=== PATIENT | female | born 1940 | race Caucasian/White ===

== ENCOUNTER 2016-10-03 12:02 | Emergency (ER) | payer MEDICARE ==
[~2016-10-03 12:02] MED LIST: ALBU8.5H6 IH; ALPR0.25 PO; BUDE10.2 IH; CITA40TA12 PO; DOXY100C2 PO; FAMO-63 PO; Ipratropium/Albuterol Sulfate NEB; LEVO112T2 PO; LINE600T PO; LISI10TA2 PO; LORA10CA PO; LOVA20TA2 PO; MAGN400C PO; MONT10TA6 PO; PANT40TA3 PO; PRED-220 PO; RANI150T6 PO; SENN8.6T99 PO; Sulfamethoxazole/Trimethoprim PO; fluticasone; nebulizer
[2016-10-03] MEDS ORDERED: ALBUTEROL SULFATE 2.5 MG/3 ML NEBU. NEB ONE (12:45)
[2016-10-03] MEDS ORDERED: LIDO:MAALOX:DONNATAL 1:1:1 15 ML SINGLE DOSE SWSW ONE (12:45)
--- NOTE | 2016-10-03 12:53 | EKG ---
[facility] [address] [place] [address] Test Date: 2016-10-03 Test Time: 12:10:19 Pat Name: URVASHI LÓPEZ Department: Room: Gender: F [employer] Supervisor: : 1940 Requested By: GABBY PALACIOS Order Number: [id number] Reading MD: Measurements Intervals [place] Rate: 84 P: 37 PA: 122 QRS: -4 QRSD: 76 T: 38 QT: 362 QTc: 431 Interpretive Statements SINUS RHYTHM LEFT ATRIAL ABNORMALITY LEFTWARD AXIS RI6.01 Unconfirmed report No previous ECG available for comparison
[2016-10-03 12:57] LABS: BASO # 0.1 x10^3/uL (0.0-0.2); BASO % 1 % (0-3); EOS % 1 % (0-3); HEMATOCRIT 38.8 % (36.0-47.0); HEMOGLOBIN 13.1 g/dL (12.0-15.5); LYMPH # 2.9 x10^3/uL (1.0-4.8); LYMPH % 17 % (24-48); MEAN CORPUSCULAR HEMOGLOBIN 30 pg (25-35); MEAN CORPUSCULAR HGB CONC 34 g/dL (31-37); MEAN CORPUSCULAR VOLUME 87 fL (79-100); MONO % 7 % (0-9); NEUT % 74 % (31-73); PLATELET COUNT 286 x10^3/uL (140-400); RED BLOOD COUNT 4.43 x10^6/uL (3.50-5.40); RED CELL DISTRIBUTION WIDTH 14.3 % (11.5-14.5); WHITE BLOOD COUNT 16.9 x10^3/uL (4.0-11.0)
[2016-10-03 13:05] LABS: CALCIUM 9.5 mg/dL (8.5-10.1); CREATININE 0.8 mg/dL (0.6-1.0); GFR 69.6; POTASSIUM 4.1 mmol/L (3.5-5.1)
[2016-10-03 13:11] LABS: ALBUMIN 3.3 g/dL (3.4-5.0); DIRECT BILIRUBIN 0.1 mg/dL (0.0-0.2); TOTAL BILIRUBIN 0.6 mg/dL (0.2-1.0); TOTAL PROTEIN 7.7 g/dL (6.4-8.2)
[2016-10-03 13:27] LABS: OBC FLU VALID
--- NOTE | 2016-10-03 13:42 | ED.ADGEN ---
Past Medical History Past Medical History: Asthma, Depression, High Cholesterol, Hypertension, Hypothyroid, Other Additional Past Medical Histor: rheumatic fever, sinusitis, polymyalgia rheumatica, ocular migraines Past Surgical History: Other Additional Past Surgical Histo: sinus, spinal decompression and fusion, cyst removal on larynx and L groin Alcohol Use: None Drug Use: None Adult General Chief Complaint Chief Complaint: CHEST WALL PAIN HPI HPI Patient is a 76 year old female presents emergency department with intermittent epigastric pain for the last 4-5 days. Patient has a history of esophageal stricture with dilation she states it feels like the stricture may be returning. She is also suspicious that this is heartburn. She reports that her symptoms are worse after eating. She has had a few episodes where the pain is radiated to her right chest wall or left shoulder. She denies any fevers ( although temp is elevated here today), chills, nausea, vomiting, or diaphoresis. Denies any dyspnea. Review of Systems Review of Systems Constitutional: Denies fever or chills. [] Eyes: Denies change in visual acuity. [] HENT: Denies nasal congestion or sore throat. [] Respiratory: Denies cough or shortness of breath. [] Cardiovascular: Denies chest pain or edema. [] GI: Denies abdominal pain, nausea, vomiting, bloody stools or diarrhea. [] : Denies dysuria. [] Musculoskeletal: Denies back pain or joint pain. [] Integument: Denies rash. [] Neurologic: Denies headache, focal weakness or sensory changes. [] Endocrine: Denies polyuria or polydipsia. [] Lymphatic: Denies swollen glands. [] Psychiatric: Denies depression or anxiety. [] Current Medications Current Medications Current Medications Medications (Trade) Dose Ordered Sig/Priya Start Time Stop Time Status Last Admin Dose Admin Albuterol Sulfate (Ventolin Neb Soln) 2.5 mg 1X ONCE 10/03/16 12:45 10/03/16 12:49 DC Multi-Ingredient Mouthwash/Gargle (Gi Cocktail Single Dose) 15 ml 1X ONCE 10/03/16 12:45 10/03/16 12:49 DC 10/03/16 12:53 15 ML Allergies Allergies Allergies Coded Allergies Type Severity Reaction Last Updated Verified roflumilast Allergy Severe Swelling 10/03/16 No I S O L A T I O N *CONTACT* Allergy Unknown 04/02/15 Yes levofloxacin Adverse Reaction Intermediate diarrhea 04/03/15 Yes Physical Exam Physical Exam Constitutional: Well developed, well nourished, no acute distress, non-toxic appearance. [] HENT: Normocephalic, atraumatic, bilateral external ears normal, oropharynx moist, no oral exudates, nose normal. [] Eyes: PERRLA, EOMI, conjunctiva normal, no discharge. [] Neck: Normal range of motion, no tenderness, supple, no stridor. [] Cardiovascular:Heart rate regular rhythm, no murmur [] Lungs & Thorax: Bilateral breath sounds decreased with occasional minor wheeze [] Abdomen: Bowel sounds normal, soft, no tenderness, no masses, no pulsatile masses. [] Skin: Warm, dry, no erythema, no rash. [] Back: No tenderness, no CVA tenderness. [] Extremities: No tenderness, no cyanosis, no clubbing, ROM intact, no edema. [] Neurologic: Alert and oriented X 3, normal motor function, normal sensory function, no focal deficits noted. [] Psychologic: Affect normal, judgement normal, mood normal. [] Current Patient Data Vital Signs Vital Signs Date Time Temp Pulse Resp B/P Pulse Ox O2 Delivery O2 Flow Rate FiO2 10/03/16 14:43 76 133/62 93 Room Air 10/03/16 12:08 99.7 20 99.7 Lab Values Laboratory Tests Test 10/03/16 12:15 10/03/16 12:17 10/03/16 13:37 White Blood Count 16.9x10^3/uL (4.0-11.0) H Red Blood Count 4.43x10^6/uL (3.50-5.40) Hemoglobin 13.1g/dL (12.0-15.5) Hematocrit 38.8% (36.0-47.0) Mean Corpuscular Volume 87fL (79-100) Mean Corpuscular Hemoglobin 30pg (25-35) Mean Corpuscular Hemoglobin Concent 34g/dL (31-37) Red Cell Distribution Width 14.3% (11.5-14.5) Platelet Count 286x10^3/uL (140-400) Neutrophils (%) (Auto) 74% (31-73) H Lymphocytes (%) (Auto) 17% (24-48) L Monocytes (%) (Auto) 7% (0-9) Eosinophils (%) (Auto) 1% (0-3) Basophils (%) (Auto) 1% (0-3) Neutrophils # (Auto) 12.5x10^3uL (1.8-7.7) H Lymphocytes # (Auto) 2.9x10^3/uL (1.0-4.8) Monocytes # (Auto) 1.2x10^3/uL (0.0-1.1) H Eosinophils # (Auto) 0.2x10^3/uL (0.0-0.7) Basophils # (Auto) 0.1x10^3/uL (0.0-0.2) Sodium Level 140mmol/L (136-145) Potassium Level 4.1mmol/L (3.5-5.1) Chloride Level 102mmol/L (98-107) Carbon Dioxide Level 26mmol/L (21-32) Anion Gap 12 (6-14) Blood Urea Nitrogen 12mg/dL (7-20) Creatinine 0.8mg/dL (0.6-1.0) Estimated GFR (Cockcroft-Gault) 69.6 Glucose Level 94mg/dL (70-99) Calcium Level 9.5mg/dL (8.5-10.1) Total Bilirubin 0.6mg/dL (0.2-1.0) Direct Bilirubin 0.1mg/dL (0.0-0.2) Aspartate Amino Transferase (AST) 15U/L (15-37) Alanine Aminotransferase (ALT) 18U/L (14-59) Alkaline Phosphatase 90U/L (46-116) Troponin I Quantitative < 0.017ng/mL (0.000-0.055) TQ-Jwy-R-Type Natriuretic Peptide 235pg/mL (0-449) Total Protein 7.7g/dL (6.4-8.2) Albumin 3.3g/dL (3.4-5.0) L Lipase 87U/L (73-393) Influenza Type A Antigen Negative (NEGATIVE) Influenza Type B Antigen Negative (NEGATIVE) Urine Collection Type Unknown Urine Color Yellow Urine Clarity Clear Urine pH 5.5 Urine Specific [place] 1.015 Urine Protein Negativemg/dL (NEG-TRACE) Urine Glucose (UA) Negativemg/dL (NEG) Urine Ketones (Stick) Negativemg/dL (NEG) Urine Blood Moderate (NEG) Urine Nitrite Negative (NEG) Urine Bilirubin Negative (NEG) Urine Urobilinogen Dipstick 0.2mg/dL (0.2 mg/dL) Urine Leukocyte Esterase Small (NEG) Urine RBC 1-2/HPF (0-2) Urine WBC 1-4/HPF (0-4) Urine Squamous Epithelial Cells Few/LPF Urine Bacteria Few/HPF (0-FEW) Urine Hyaline Casts Few/HPF Urine Mucus Mod/LPF Laboratory Tests 10/03/16 12:15 Laboratory Tests 10/03/16 12:15 EKG EKG EKG interpreted by me, normal sinus rhythm, 84 bpm, no ST segment elevation, leftward axis [] Radiology/Procedures Radiology/Procedures EXAM: Two view abdomen with one view chest HISTORY: Left abdominal pain. COMPARISON: 03/31/2015. FINDINGS: A frontal view of the chest and supine/upright views of the abdomen are obtained. There are no confluent infiltrates. Hyperinflation suggests chronic obstructive pulmonary disease. There is no pneumothorax or pleural effusion. The heart is mildly enlarged. There are atherosclerotic calcifications of the aorta. There is no pneumoperitoneum. There are no distended small bowel loops or significant air-fluid levels. There is moderate gaseous distention of the cecum. There is gas distally. Stool throughout the colon is consistent with constipation. There are changes of instrumented posterior fusion at L4-5. IMPRESSION: 1. No confluent infiltrates. Hyperinflation suggests chronic obstructive pulmonary disease. 2. Mild cardiomegaly. 3. Gaseous distention of the cecum. Correlate for constipation. No evidence of obstruction. DICTATED and SIGNED BY: JAMIN ALDRICH MD DATE: 10/03/16 2649 CC: GABBY PALACIOS MD; ELLIE DAMON MD ~[] Course & Med Decision Making Course & Med Decision Making Pertinent Labs and Imaging studies reviewed. (See chart for details) Overall, her workup is reassuring. She does have an equivocal minor urinary tract infection which we will treat with Bactrim. She also appears to have constipation on her x-ray she tells me that this is a chronic problem for her. Ultimately, I do believe this is more likely related to her esophageal stricture than anything else. Shortly has an appointment scheduled in 2 days with the primary care physician. I have asked her to keep that appointment and to return emergency department sooner she develops any new or worsening symptoms. Epigastric pain Urinary tract infection Constipation [] Dragon Disclaimer Dragon Disclaimer This electronic medical record was generated, in whole or in part, using a voice recognition dictation system. GABBY PALACIOS MD Oct 03, 2016 13:42
[2016-10-03 14:11] LABS: BILIRUBIN,URINE NEGATIVE (NEG); GLUCOSE,URINE NEGATIVE (NEG); NITRITE,URINE NEGATIVE (NEG); PH,URINE 5.5; PROTEIN,URINE NEGATIVE (NEG-TRACE); UROBILINOGEN,URINE 0.2 mg/dL (0.2 mg/dL)
--- NOTE | 2016-10-03 14:19 | RAD ---
EXAM: Two view abdomen with one view chest HISTORY: Left abdominal pain. COMPARISON: 03/31/2015. FINDINGS: A frontal view of the chest and supine/upright views of the abdomen are obtained. There are no confluent infiltrates. Hyperinflation suggests chronic obstructive pulmonary disease. There is no pneumothorax or pleural effusion. The heart is mildly enlarged. There are atherosclerotic calcifications of the aorta. There is no pneumoperitoneum. There are no distended small bowel loops or significant air-fluid levels. There is moderate gaseous distention of the cecum. There is gas distally. Stool throughout the colon is consistent with constipation. There are changes of instrumented posterior fusion at L4-5. IMPRESSION: 1. No confluent infiltrates. Hyperinflation suggests chronic obstructive pulmonary disease. 2. Mild cardiomegaly. 3. Gaseous distention of the cecum. Correlate for constipation. No evidence of obstruction.
[2016-10-03 14:42] LABS: BACTERIA,URINE FEW /HPF (0-FEW); SQUAMOUS EPITHELIAL CELL,UR FEW /LPF
[2016-10-03 14:43] VITALS: BP 133/62
[2016-10-03] MEDS ORDERED: SULF1TAB24 PO (14:53)
== END 2016-10-03 15:09 | disposition home or self-care (01) ==
LOC: ER 12:02
DX: N39.0 Urinary tract infection, site not specified (principal); R07.89 Other chest pain; K59.00 Constipation, unspecified; E03.9 Hypothyroidism, unspecified; E78.00 Pure hypercholesterolemia, unspecified; I10 Essential (primary) hypertension; J45.909 Unspecified asthma, uncomplicated; M35.3 Polymyalgia rheumatica; G43.809 Other migraine, not intractable, without status migrainosus; Z88.1 Allergy status to other antibiotic agents; Z88.8 Allergy status to other drugs, medicaments and biological substances; Z91.041 Radiographic dye allergy status
CPT/HCPCS: 36415; 74022; 80048; 80076; 81001; 83690; 83880; 84484; 85027; 87086; 87804; 93005; 94250; 94640; 99285-25

== ENCOUNTER → 2016-11-04 | Outpatient (CLI) | payer BC, MEDICARE ==
[~2016-11-04] MED LIST changes: +IOHEXOL 240 MG/ML 50ML VIAL. PO ONE; +IOHEXOL 300 MG/ML 100ML VIAL. IV ONE; +SULF1TAB24 PO
--- NOTE | 2016-11-04 11:49 | KCIC ---
PQRS STATEMENT One or more of the following individualized dose reduction techniques were utilized for this study: 1.Automated exposure control. 2.Adjustment of the mA and/orkVaccording to patient size. 3.Use of iterative reconstruction technique. Indication:Reason For Study Reason: LUQ PAIN / Spl. Instructions: 89cc Omni 300 / History: Pain for 2 weeks, wt loss of 10lbs last 6 months, decreased appetite Comparison: none available Technique: multiple contiguous axial images were obtained through the abdomen and pelvis before and after intravenous administration of iodinated contrast. Coronal and sagittal reformations were created. Findings: The lung bases are clear. The heart size is normal. The liver is normal in size with several hepatic cysts noted.. The gallbladder is nondistended. The pancreas is unremarkable. The spleen and adrenal glands are within normal limits. Kidneys are unremarkable apart from a cortical cyst on the left. The abdominal aorta is normal in caliber. There is perigastric adenopathy of indeterminate etiology. The appendix is normal. The bowel loops are normal in caliber. The urinary bladder is within normal limits. No destructive osseous lesion is identified. Impression: - There is perigastric adenopathy of indeterminate etiology. There is also mild retroperitoneal adenopathy. Although not specific, consider lymphoma as in etiology given the patient's reported weight loss. Electronically signed by: Rafal Yee (Nov 04, 2016 11:47:32)
== END | disposition home or self-care (01) ==
LOC: KCIC CT 09:45
PROVIDERS: ATTEND Family Medicine
DX: R10.12 Left upper quadrant pain (principal); J45.909 Unspecified asthma, uncomplicated; I10 Essential (primary) hypertension; R63.4 Abnormal weight loss
CPT/HCPCS: 74178; Q9966; Q9967

== ENCOUNTER → 2016-12-02 | Day surgery (SDC) | payer BC ==
[~2016-12-02] MED LIST changes: +HYDROmorphone 2 MG/ML VIAL IV PRN; -IOHEXOL 240 MG/ML 50ML VIAL. PO ONE; -IOHEXOL 300 MG/ML 100ML VIAL. IV ONE; +IV RINGERS,LACTATED 1000ML 1,000 ML IV SCH; +LIDOCAINE 1% 1 ML SYRINGE. ID PRN; +MORPHINE SULFATE 2 MG/ML DISP.SYRIN. IV PRN; +PROCHLORPERAZINE 10 MG/2 ML VIAL. IV PRN; +PROPOFOL 20 ML IV ONE; +PROPOFOL 40 ML IV ONE
[2016-12-02 14:49] VITALS: BP 147/58
--- NOTE | 2016-12-07 11:56 | PATHOLOGY ---
PATHOLOGY REPORT * * * * * * * * FINAL DIAGNOSIS: A. Colon, sigmoid, biopsy: - Adenomatous polyp, one. - Hyperplastic polyp, one. B. Colon, descending, biopsy: - Adenomatous polyps, four. - Hyperplastic polyp, one. REPORT ELECTRONICALLY SIGNED BY: René Haley M.D. DATE/TIME: 12/07/2016 11:56 * * * * * * * * GROSS PATHOLOGY: A. Received in formalin labeled "Donna López, sigmoid polyps 2," are 2 segments of gutierrez soft tissue measuring 0.8 x 0.5 x 0.3 cm in aggregate dimensions and ranging from 0.4 to 0.5 cm in maximum dimension. The specimen is submitted entirely in cassette A1. B. Received in formalin labeled "Donna López, descending colon polyps 2," are 5 segments of gutierrez soft tissue measuring 0.9 x 0.8 x 0.6 cm in aggregate dimensions and ranging from 0.2 to 0.9 cm in maximum dimension. The specimen is submitted entirely in cassette B1. (KAH; 12/04/2016) INITIAL CPT CODE(S): A; 57793 B; 49060 Professional services performed by [facility], [address] [place] [address]. Technical services performed by [facility], [address] [place] [address], [address], [place] [address]. SPECIMEN(S) RECEIVED: A.Sigmoid polyps x2 B.Descending colon polyp x2 CLINICAL HISTORY: Dysphagia, weight loss, LLQ pain PATIENT: DONNA LÓPEZ /AGE: 10 1940 (Age: 76) PATIENT #: [id number] ALT CASE #: SPECIMEN COLLECTION DATE: 12/02/2016 SPECIMEN RECEIVED DATE: 12/03/2016 [facility] - [address] [place] [address] - PHONE: [phone] * * * END OF REPORT * * *
== END | disposition home or self-care (01) ==
LOC: ENDOS 12:24
PROVIDERS: ATTEND Internal Medicine Gastroenterology
DX: D12.5 Benign neoplasm of sigmoid colon (principal); D12.4 Benign neoplasm of descending colon; K64.1 Second degree hemorrhoids; K22.2 Esophageal obstruction; K29.50 Unspecified chronic gastritis without bleeding; K21.9 Gastro-esophageal reflux disease without esophagitis; F41.9 Anxiety disorder, unspecified; E78.00 Pure hypercholesterolemia, unspecified; I10 Essential (primary) hypertension; E03.9 Hypothyroidism, unspecified; F32.9 Major depressive disorder, single episode, unspecified; Z88.1 Allergy status to other antibiotic agents; Z88.8 Allergy status to other drugs, medicaments and biological substances; Z86.69 Personal history of other diseases of the nervous system and sense organs
CPT/HCPCS: 43235; 43450; 45385; 88305; J2704

== ENCOUNTER → 2016-12-15 | Outpatient (CLI) | payer BC ==
[2016-12-15] VITALS (16 sets, daily range): BP systolic 109–147; BP diastolic 52–83
[~2016-12-15] VITALS: Ht 156.2 cm; Wt 68.9 kg
[~2016-12-15] MED LIST changes: +CONTRAST GIVEN MC PRN; +FLUMAZENIL 0.5 MG/5 ML VIAL. IV ONE; -HYDROmorphone 2 MG/ML VIAL IV PRN; +IOHEXOL 300 MG/ML 100ML VIAL. IART ONE; +IOHEXOL 300 MG/ML 100ML VIAL. ONE; -IV RINGERS,LACTATED 1000ML 1,000 ML IV SCH; +KETOROLAC TROMETHAMINE 30 MG/ML INJ. IV ONE; +LIDOCAINE 1% / SOD BICARB 8.4% 20 ML VIAL. IJ ONE; -LIDOCAINE 1% 1 ML SYRINGE. ID PRN; +MIDAZOLAM HCL/PF 2 MG/2 ML VIAL. IV ONE; +MIDAZOLAM HCL/PF 2 MG/2 ML VIAL. ONE; -MORPHINE SULFATE 2 MG/ML DISP.SYRIN. IV PRN; +NALOXONE 0.4 MG/ML VIAL. ONE; -PROCHLORPERAZINE 10 MG/2 ML VIAL. IV PRN; -PROPOFOL 20 ML IV ONE; -PROPOFOL 40 ML IV ONE; +fentaNYL PF VIAL 100 MCG/2 ML VIAL IV ONE; +fentaNYL PF VIAL 100 MCG/2 ML VIAL ONE
[2016-12-15 07:59] LABS: BASO # 0.1 x10^3/uL (0.0-0.2); BASO % 1 % (0-3); EOS % 9 % (0-3); HEMATOCRIT 36.4 % (36.0-47.0); HEMOGLOBIN 12.2 g/dL (12.0-15.5); LYMPH # 1.7 x10^3/uL (1.0-4.8); LYMPH % 19 % (24-48); MEAN CORPUSCULAR HEMOGLOBIN 30 pg (25-35); MEAN CORPUSCULAR HGB CONC 34 g/dL (31-37); MEAN CORPUSCULAR VOLUME 90 fL (79-100); MONO % 8 % (0-9); NEUT % 63 % (31-73); PLATELET COUNT 314 x10^3/uL (140-400); RED BLOOD COUNT 4.02 x10^6/uL (3.50-5.40); RED CELL DISTRIBUTION WIDTH 14.5 % (11.5-14.5); WHITE BLOOD COUNT 9.3 x10^3/uL (4.0-11.0)
[2016-12-15 08:07] LABS: INR 1.1 (0.8-1.1); PROTHROMBIN TIME PATIENT 13.4 SEC (11.7-14.0)
--- NOTE | 2016-12-15 09:51 | PDOC ---
MODERATE SEDATION ASSESSMENT RISKS/ALTERNATIVES Risks/Alternatives Risks and alternatives of this type of sedation and procedure discussed with: RISK/ALTERNATIVES: Patient H & P ON CHART H & P H & P on chart and reviewed for co-morbid conditions and appropriate labs. H&P ON CHART: Yes STATUS PREG STATUS ASSESSED: N/A MEDS/ALLERGIES REVIEWED Meds/Allergies Reviewed Medications and Allergies including time and route of recently administered narcotics and sedatives. MEDS/ALLERGIES REVIEWED: Yes ASA RATING ASA RATING: II AIRWAY ASSESSMENT Airway Assessment Airway patency, oral function limitations, presence of caps, crowns, dentures, partials, and ability to extend neck assessed. AIRWAY ASSESSMENT: Yes MALLAMPATI SCORE MALLAMPATI SCORE: II PRE-SEDATION ASSESSMENT PRE-SEDATION ASSESSMENT: Yes MIRA ADAME MD December 15, 2016 09:51
--- NOTE | 2016-12-15 10:01 | PDOC1 ---
History and Physical Date of Procedure Date of Admission 12/15/[address] guided lymph node bx Indication Indication 76 YO female with wt loss, abdominal pain, and scattered mild perigastric, celiac, peripancreatic, and central RP adenopathy. Past Medical History Past Medical History See Nursing Pre procedure PMH Past Surgical History Past Surgical History See Nursing Pre procedure PSH Current Medications Current Medications Current Medications Lidocaine/Sodium Bicarbonate (Buffered Lidocaine 1%) 20 ml STK-MED ONCE IJ ; Start 12/15/16 at 07:57; Stop 12/15/16 at 07:58; Status DC Iohexol (Omnipaque 300 Mg/ml) 100 ml STK-MED ONCE .ROUTE ; Start 12/15/16 at 08: 28; Stop 12/15/16 at 08:29; Status DC Naloxone HCl (Narcan) 0.4 mg STK-MED ONCE .ROUTE ; Start 12/15/16 at 08:42; Stop 12/15/16 at 08:43; Status DC Flumazenil (Romazicon) 0.5 mg STK-MED ONCE IV ; Start 12/15/16 at 08:42; Stop at 08:43; Status DC Fentanyl Citrate (Fentanyl 2ml Vial) 100 mcg STK-MED ONCE .ROUTE ; Start at 08:43; Stop 12/15/16 at 08:44; Status DC Midazolam HCl (Versed) 2 mg STK-MED ONCE .ROUTE ; Start 12/15/16 at 08:43; Stop 12/15/16 at 08:44; Status DC Lidocaine/Sodium Bicarbonate (Buffered Lidocaine 1%) 20 ml 1X ONCE IJ Last administered on 12/15/16 09:37; Start 12/15/16 at 09:00; Stop 12/15/16 at 09:01 ; Status DC Midazolam HCl (Versed) 2 mg 1X ONCE IV Last administered on 12/15/16 09:38; Start 12/15/16 at 09:00; Stop 12/15/16 at 09:01; Status DC Fentanyl Citrate (Fentanyl 2ml Vial) 100 mcg 1X ONCE IV Last administered on 09:38; Start 12/15/16 at 09:00; Stop 12/15/16 at 09:01; Status DC Iohexol (Omnipaque 300 Mg/ml) 100 ml 1X ONCE IART Last administered on t 09:37; Start 12/15/16 at 09:00; Stop 12/15/16 at 09:01; Status DC Info (Do NOT chart on this entry -- for MONITORING) 1 each PRN DAILY PRN MC SEE COMMENTS; Start 12/15/16 at 09:00; Stop 12/17/16 at 08:59 Ketorolac Tromethamine (Toradol) 30 mg 1X ONCE IV ; Start 12/15/16 at 09:45; Stop 12/15/16 at 09:46; Status DC Active Scripts Active Zyvox (Linezolid) 600 Mg Tablet 600 Mg PO BID 14 Days [Ipratropium/Albuterol Sulfate] 3 ML Nebu 3 Ml NEB 1X Reported Magnesium (Magnesium Oxide) 400 Mg Capsule 1 Cap PO DAILY Zantac (Ranitidine Hcl) 150 Mg Tablet 150 Mg PO DAILY Xanax (Alprazolam) 0.25 Mg Tablet 0.25 Mg PO QIDPRN PRN Celexa (Citalopram Hydrobromide) 40 Mg Tablet 40 Mg PO Synthroid (Levothyroxine Sodium) 112 Mcg Tablet 112 Mcg PO DAILY Singulair Tablet (Montelukast Sodium) 10 Mg Tablet 10 Mg PO DAILY Claritin (Loratadine) 10 Mg Capsule 10 Mg PO DAILY Lovastatin 20 Mg Tablet 20 Mg PO DAILY Lisinopril 10 Mg Tablet 10 Mg PO DAILY [nebulizer] PRN DAILY Albuterol Sulfate Hfa Inhaler (Albuterol Sulfate) 8.5 Gm Hfa.aer.ad 8.5 Gm IH PRN DAILY [fluticasone] BID Symbicort 160-4.5 Mcg Inhaler (Budesonide/Formoterol Fumarate) 10.2 Gm Hfa.aer.ad 10.2 Gm IH BID Allergies Allergies: Coded Allergies: roflumilast (Unverified Allergy, Severe, Swelling, 12/02/16) I S O L A T I O N *CONTACT* (Verified Allergy, Unknown, 12/02/16) mrsa + levofloxacin (Verified Adverse Reaction, Intermediate, diarrhea, 12/02/16) Physical Exam Vital Signs Vital Signs Date Time Temp Pulse Resp B/P (MAP) Pulse Ox O2 Delivery O2 Flow Rate FiO2 12/15/16 09:39 81 20 99 Nasal Cannula 2.0 12/15/16 08:34 97.8 134/59 (84) 97.8 Lungs: Clear to auscultation Heart: Regular rate Psych/Mental Status: Mental status NL Diagnostic Data/Imaging Images [facility] CT chest from 04/01/[address] [facility] CT abd/pelvis from 11/04/16 reviewed. Assessment Assessment 76 YO female with wt loss, abdominal pain, and mild upper abdominal and central RP adenopathy. Upper abdominal perigastric/celiac and peripancreatic nodes were not present on upper abdominal images from CT chest in [place]. CT guided node bx has been requested for tissue diagnosis---lymphoma vs met disease (of ? primary) vs reactive. Problems: Plan Plan CT guided node bx, if safe percutaneous route can be identified. MIRA ADAME MD December 15, 2016 10:01
--- NOTE | 2016-12-15 10:07 | PDOC ---
Exam Market Research Specialist Market Research Specialist José Miguel Model [employer] Person Model And D[employer] Person Delmar Valderrama Pre-Procedure Diagnosis Pre-Procedure Diagnosis 76 YO female with abdominal pain, wt loss, and mild perigastric/gastrohepatic/ celiac, peripancreatic, and central RP adenopathy---upper abdominal nodes are new since CT chest from Mar. Lymphoma vs met disease of unknown primary vs reactive adenopathy. Post-Procedure Diagnosis Post-Procedure Diagnosis Same Procedure Performed Procedure Performed CT guided bx of gastrohepatic/celiac 2.5 cm node mass. Type of Anesthesia Type of Anesthesia Local + Mod sedation Estimated Blood Loss EBL: Trace Specimens Specimans 3 18G core bx in formalin to path 1 18G core bx in cell flow holding media to path Condition of Patient Condition of Patient Stable. No apparent complication. Disposition Disposition Home from [facility] post recovery, if no problems. F/u with Dr Delgado. Full report to follow. MIRA ADAME MD December 15, 2016 10:07
--- NOTE | 2016-12-16 07:00 | RAD ---
CT-guided lymph node biopsy Indication: 76-year-old female with abdominal pain, weight loss, and with interval appearance of upper abdominal lymphadenopathy since a prior CT chest done 04/01/2015. Differential considerations would include lymphoma versus metastatic disease of unknown primary versus reactive adenopathy. Image guided lymph node biopsy has been requested for tissue diagnosis. Anesthesia: 22 minutes moderate sedation was provided utilizing a total of 2 mg Versed and 100 mcg fentanyl, IV. The patient was appropriately monitored by a qualified independent observer throughout the time of moderate sedation. Consent: The procedure was explained in its entirety to the patient and/or the patient's designated field representatives director by a member of the treatment team. This included a discussion of risks and benefits and acceptable alternatives to the procedure, as well as expected consequences of no treatment at all. Discussion of risks included, but was not limited to, those that are most frequent and those that are rare, but possibly severe or life-threatening, as well as the possibility of unforeseen complications. Contrast material: 75 cc Omnipaque 300 Procedure: Informed consent was obtained from the patient. She was placed supine on the CT scanner. Preliminary non-IV contrast followed by dynamic contrast CT images were obtained through abdomen. Those images confirmed the presence of a 2.5 cm gastrohepatic/celiac lymph node suitable for CT-guided biopsy. An overlying left anterior skin site was selected, was marked, and was prepped and draped in the usual sterile fashion. Using aseptic technique, local anesthesia, and CT guidance, a 17-gauge guide needle was successfully advanced to anterior margin of the lymph node mass, taking care to avoid greater curve of stomach and adjacent celiac artery branches. A total of 4 18-gauge core biopsy samples were obtained. 3 samples were submitted in formalin to pathology. One sample was submitted to pathology in cell flow holding media. The biopsy guide needle was removed and a sterile dressing was applied. Patient tolerated the procedure well without apparent complication. Completion CT images revealed no evidence of postbiopsy bleeding. Impression: Successful, uneventful CT-guided biopsy of enlarged gastrohepatic/celiac lymph node, as described. PQRS Compliance Statement: One or more of the following individualized dose reduction techniques was utilized for this procedure: 1. Automated exposure control. 2. Adjustment of MA and/or KV according to patient size. 3. Iterative reconstruction technique.
== END | disposition home or self-care (01) ==
LOC: INTRAD 07:18
PROVIDERS: ATTEND Internal Medicine Gastroenterology
DX: R59.9 Enlarged lymph nodes, unspecified (principal); Z88.8 Allergy status to other drugs, medicaments and biological substances; Z88.1 Allergy status to other antibiotic agents; E78.00 Pure hypercholesterolemia, unspecified; I10 Essential (primary) hypertension; J45.909 Unspecified asthma, uncomplicated; E03.9 Hypothyroidism, unspecified; K21.9 Gastro-esophageal reflux disease without esophagitis; F41.9 Anxiety disorder, unspecified; F32.9 Major depressive disorder, single episode, unspecified; Z87.39 Personal history of other diseases of the musculoskeletal system and connective tissue; Z86.14 Personal history of Methicillin resistant Staphylococcus aureus infection; Z86.69 Personal history of other diseases of the nervous system and sense organs
CPT/HCPCS: 36415; 49180; 77012; 85027; 85610; 88184; 88185; J2250; J3010; Q9967

== ENCOUNTER → 2017-01-06 | Outpatient (CLI) | payer BC ==
[2016-12-15 11:50] VITALS: BP 124/61
[~2017-01-06] MED LIST changes: -FLUMAZENIL 0.5 MG/5 ML VIAL. IV ONE; -IOHEXOL 300 MG/ML 100ML VIAL. IART ONE; +IOHEXOL 300 MG/ML 100ML VIAL. IV ONE; -IOHEXOL 300 MG/ML 100ML VIAL. ONE; -KETOROLAC TROMETHAMINE 30 MG/ML INJ. IV ONE; -LIDOCAINE 1% / SOD BICARB 8.4% 20 ML VIAL. IJ ONE; -MIDAZOLAM HCL/PF 2 MG/2 ML VIAL. IV ONE; -MIDAZOLAM HCL/PF 2 MG/2 ML VIAL. ONE; -NALOXONE 0.4 MG/ML VIAL. ONE; -fentaNYL PF VIAL 100 MCG/2 ML VIAL IV ONE; -fentaNYL PF VIAL 100 MCG/2 ML VIAL ONE
--- NOTE | 2017-01-06 14:23 | KCIC ---
Indication: New diagnosis of adenocarcinoma. Technique: Axial images and coronal and sagittal reformatted images are provided. 85 mL of intravenous Omnipaque 300 was administered without complication. Comparison is a CT abdomen and pelvis from November 04, 2016. One or more of the following individualized dose reduction techniques were utilized for this examination: 1. Automated exposure control 2. Adjustment of the mA and/or kV according to patient size 3. Use of iterative reconstruction technique Findings: There is mild emphysema. This has a right upper lobe predominance. There are 2 left lower lobe pulmonary nodules abutting the pleura up to 3 mm in size. There is minimal lingular atelectasis or scarring. There is no pleural effusion. Central airways are patent. There is a prominent right paratracheal lymph node measuring 15 x 12 mm. There is an enlarged right hilar lymph node measuring 16 x 13 mm. There is atheromatous disease in the thoracic aorta. The heart is not enlarged. Probable cysts in the liver are redemonstrated. Adenopathy in the region of the gastrohepatic ligament as not appreciably changed in size. There are mild degenerative changes in the spine. IMPRESSION: 1. Mildly prominent right paratracheal and right hilar lymph nodes. If further workup is required in this patient with adenocarcinoma, consider PET/CT or bronchoscopy. At the minimum, follow-up CT would be recommended. 2. Pulmonary nodules for which 12 month follow-up would be recommended in this high-risk patient. 3. Mild emphysema. Electronically signed by: Miko Bowers MD (01/06/2017 2:20 PM)
== END | disposition home or self-care (01) ==
LOC: KCIC CT 12:26
PROVIDERS: ATTEND Internal Medicine Gastroenterology
DX: J43.9 Emphysema, unspecified (principal); R59.0 Localized enlarged lymph nodes
CPT/HCPCS: 71260; Q9967

== ENCOUNTER → 2017-01-13 | Outpatient (CLI) | payer BC ==
[2016-12-15 11:50] VITALS: BP 124/61
[~2017-01-13] MED LIST changes: -CONTRAST GIVEN MC PRN; -IOHEXOL 300 MG/ML 100ML VIAL. IV ONE
--- NOTE | 2017-01-13 15:57 | RAD ---
FDG tumor localization scan, PET/CT, 01/13/2017: History: Adenocarcinoma, pulmonary nodule Following IV injection of 15.3 mCi of 18 F-FDG, imaging was performed from the skull base to the proximal thighs. The noncontrast CT component was performed for attenuation correction and anatomic localization purposes rather than for primary diagnosis. The patient's blood glucose level at the time of injection was 109 mg/DL. There is partial opacification of the paranasal sinuses. There are defects in the medial gonzalez of both maxillary sinuses, presumably postsurgical. There is increased activity in these regions compatible with inflammation. There is also increased FDG uptake in the tonsillar regions bilaterally compatible with inflammation. Physiologic activity is seen in the laryngeal region. There is symmetrical increased activity in both lobes of the thyroid gland, of doubtful significance. No abnormal pulmonary or mediastinal FDG uptake is seen. The 2 tiny subpleural nodules seen in the left base on the 01/06/2017 CT study are too small to expect to accurately evaluate with PET imaging. There is adenopathy in the upper abdomen best seen in the celiac, left para-aortic, perigastric and splenic hilar regions. These nodes are hypermetabolic. They have increased in size since 11/04/2016. For example, a 3 cm node located just superior to the proximal celiac artery demonstrates a maximum SUV of 10.5. This node measured approximately 2.4 cm in size on the previous study. There is an adjacent focus of increased FDG uptake which appears to involve the posterior aspect of the proximal stomach. The maximum SUV of this lesion is 9.0. It is slightly larger than the hypermetabolic celiac node. Normal GI tract and urinary tract activity is present in other portions of the abdomen and pelvis. No abnormal hepatic FDG uptake is seen. Several well-defined low density hepatic lesions are probably cysts. IMPRESSION: 1. Increasing hypermetabolic adenopathy in the upper abdomen compatible with the given history of metastatic adenocarcinoma. 2. Hypermetabolic focus in the posterior aspect of the proximal stomach raising the possibility of a primary gastric neoplasm versus adjacent adenopathy. 3. No definite evidence of metastatic disease in the chest.. The tiny left basilar subpleural nodules are too small to characterize. 4. Chronic paranasal sinusitis and tonsillar region inflammation.
--- NOTE | 2017-01-18 10:57 | RAD ---
DATE: January 13, 2017 EXAM: DIGITAL SCREEN BILAT W/CAD HISTORY: Screening mammogram COMPARISON: None available. Previous studies are not available. Therefore, this is a new baseline mammogram study. This study was interpreted with the benefit of Computerized Aided Detection (CAD). FINDINGS: The breast parenchyma shows scattered fibroglandular densities. There are no dominant suspicious masses, suspicious microcalcifications or evidence of architectural distortion. IMPRESSION: No mammographic indicators for malignancy. BI-RADS CATEGORY: 1 NEGATIVE RECOMMENDED FOLLOW-UP: 12M 12 MONTH FOLLOW-UP PQRS compliance statement: Patient information was entered into a reminder system with a target due date January 14, 2018 for the next mammogram. Mammography is a sensitive method for finding small breast cancers, but it does not detect them all and is not a substitute for careful clinical examination. A negative mammogram does not negate a clinically suspicious finding and should not result in delay in biopsying a clinically suspicious abnormality. "Our facility is accredited by the [employer] Mammography [employer]." The patient's breast density may affect the ability of mammography to detect breast cancer. There are 4 categories of breast density, A, B, C and D. Breast density A means that most of the breast tissue is replaced with adipose tissue and therefore is not dense. Breast density B means that the breast tissue is mildly dense and scattered. Breast density C means that the breast tissue is heterogeneously dense. Breast density D means that the breast tissue is very dense. Breast densities especially C and D may decrease the sensitivity of mammography to detect breast cancer. Therefore, the patient may benefit from 3-D breast mammography (3D breast tomography) as a part of their screening mammogram. Insurance may or may not pay for this additional imaging. The patient's breast density based on today's mammogram is category B.
== END | disposition home or self-care (01) ==
LOC: PETSC 11:57
PROVIDERS: ATTEND Internal Medicine Hematology & Oncology
DX: Z12.31 Encounter for screening mammogram for malignant neoplasm of breast (principal); C79.9 Secondary malignant neoplasm of unspecified site; C56.9 Malignant neoplasm of unspecified ovary; R91.1 Solitary pulmonary nodule
CPT/HCPCS: 78815; A9552; G0202; 77067

== ENCOUNTER → 2017-01-21 | Day surgery (SDC) | payer BC ==
[~2017-01-21] MED LIST changes: +IPRATRPIUM/ALBUTEROL 0.5/2.5MG 3 ML NEBU. ONE; +IV RINGERS,LACTATED 1000ML 1,000 ML IV ONE; +PROPOFOL 20 ML IV ONE
[2017-01-21 12:44] LABS: BASO # 0.1 x10^3/uL (0.0-0.2); BASO % 1 % (0-3); EOS % 1 % (0-3); HEMATOCRIT 38.4 % (36.0-47.0); HEMOGLOBIN 12.6 g/dL (12.0-15.5); LYMPH # 1.7 x10^3/uL (1.0-4.8); LYMPH % 15 % (24-48); MEAN CORPUSCULAR HEMOGLOBIN 30 pg (25-35); MEAN CORPUSCULAR HGB CONC 33 g/dL (31-37); MEAN CORPUSCULAR VOLUME 92 fL (79-100); MONO % 2 % (0-9); NEUT % 81 % (31-73); PLATELET COUNT 293 x10^3/uL (140-400); RED BLOOD COUNT 4.18 x10^6/uL (3.50-5.40); RED CELL DISTRIBUTION WIDTH 14.2 % (11.5-14.5); WHITE BLOOD COUNT 11.3 x10^3/uL (4.0-11.0)
[2017-01-21 12:56] LABS: INR 1.1 (0.8-1.1); PROTHROMBIN TIME PATIENT 13.4 SEC (11.7-14.0)
--- NOTE | 2017-01-21 13:47 | PDOC4 ---
PROCEDURE Procedure BRONCHOSCOPY Donna was admitted as an outpatient for diagnostic bronchoscopy. Patient is recently diagnosed with adenocarcinoma of unknown primary. Informed consent was obtained from the patient. Risk and benefits were explained. She agreed to proceed with bronchoscopy. Sedation was accomplished with propofol by anesthesia. Bronchoscope was introduced through the oral route. Vocal cords moves equally with respiration. Trachea was entered and thick yellow secretions were seen in the distal trachea. They were present in the right mainstem bronchus. Multiple sub-segments of right upper lobe bronchus were also partially occluded with thick white creamy secretions . No endobronchial lesions seen and all the sub- segments of the right upper lobe right middle or right lower lobe were examined. Mucopurulent secretions were seen at the opening of right middle lobe as well as in multiple sub-segments of right lower lobe. Bronchus introduced into the left lung. All the sub-segments of left upper lobe lingula and left lower lobe were visualized. No endobronchial lesions seen. Minimal secretions seen in the left lower lobe. Bronchoalveolar lavage was performed from the right lower lobe. IMPRESSION 1. Thick creamy secretions seen in the distal trachea, multiple sub-segments of right upper lobe and right lower lobe. 2. No endobronchial lesions seen. 3. Mucosa was hyperemic. 4. Bronchoalveolar lavage performed from the right lower lobe and sent for appropriate studies. Patient was empirically placed on doxycycline and patient will follow-up with Dr. Lee to follow on bronchoscopy cultures MARCELA GUERRA MD Jan 21, 2017 13:47
[2017-01-21 14:01] VITALS: BP 129/59
--- NOTE | 2017-01-24 14:23 | PATHOLOGY ---
CYTOPATHOLOGY REPORT CLINICAL HISTORY: Chronic cough. SPECIMEN(S) RECEIVED: A.Bronchoalveolar lavage, RLL FINAL DIAGNOSIS: A. Right lower lobe bronchoalveolar lavage, ThinPrep: - No malignant cells identified. - Bronchial epithelial cells, squamous epithelial cells, and few pulmonary macrophages identified within a background of acute inflammatory cells. (JPM:pit; 01/24/2017) PATHOLOGIST: Roberto Means M.D. REPORT ELECTRONICALLY SIGNED BY: Roberto Means M.D. DATE/TIME: 01/24/2017 14:22 GROSS PATHOLOGY: A. Bronchoalveolar lavage, RLL: The specimen is submitted unfixed, labeled "Donna López". Received by the Cytology Department is three mL of clear colorless fluid. One ThinPrep slide was prepared. (clt 01.21.2017) CLOTHES WRINGER(S): ZEYAD Guzman(ASCP) INITIAL CPT CODE(S): A; 38539 Professional services performed by [facility] [employer] [place] [address] Technical services performed by [facility] at [address] [place] [address], [address], [place] [address]. PATIENT: DONNA LÓPEZ /AGE: 10 1940 (Age: 76) SEX: F PATIENT #: [id number] ALT CASE #: SPECIMEN COLLECTION DATE: 01/21/2017 SPECIMEN RECEIVED DATE: 01/21/[address] [facility] [address] [place] [address], [address] [place] [address] PHONE: [phone] DIRECTOR: Rubin Espana M.D. * * * END OF REPORT * * *
== END | disposition home or self-care (01) ==
LOC: SURG 11:57
PROVIDERS: ATTEND Internal Medicine Critical Care Medicine
DX: C34.90 Malignant neoplasm of unspecified part of unspecified bronchus or lung (principal); Z79.01 Long term (current) use of anticoagulants; Z98.41 Cataract extraction status, right eye; Z98.42 Cataract extraction status, left eye; Z86.69 Personal history of other diseases of the nervous system and sense organs; E78.00 Pure hypercholesterolemia, unspecified; I10 Essential (primary) hypertension; J45.909 Unspecified asthma, uncomplicated; K21.9 Gastro-esophageal reflux disease without esophagitis; Z86.39 Personal history of other endocrine, nutritional and metabolic disease; E03.9 Hypothyroidism, unspecified; F41.9 Anxiety disorder, unspecified; F32.9 Major depressive disorder, single episode, unspecified; Z86.14 Personal history of Methicillin resistant Staphylococcus aureus infection; Z88.3 Allergy status to other anti-infective agents; Z88.8 Allergy status to other drugs, medicaments and biological substances
CPT/HCPCS: 31624; 36415; 85027; 85610; 85730; 87070; 87102; 87116; 87186; 87205; 88112; 94640; J2704; J7620; 31622

== ENCOUNTER → 2017-04-14 | Outpatient (CLI) | payer BC ==
[2017-01-21 14:01] VITALS: BP 129/59
[~2017-04-14] MED LIST changes: -IPRATRPIUM/ALBUTEROL 0.5/2.5MG 3 ML NEBU. ONE; -IV RINGERS,LACTATED 1000ML 1,000 ML IV ONE; -PROPOFOL 20 ML IV ONE
--- NOTE | 2017-04-14 12:44 | RAD ---
Indication gastrointestinal adenocarcinoma. PET CT was performed from the skull through the proximal thigh. CT was performed primarily for attenuation and localization purposes as opposed to primary diagnostic purposes. Note is made of a previous examination 01/13/2017 the blood sugar during the examination was 95. 13.3 mCi of FDG was administered. On CT the visualized brain appears unremarkable. No abnormal finding is seen in the neck. There is, however, some adenopathy at the right thoracic inlet similar to the previous exam. No dominant soft tissue mass in the chest is seen. There is marked periaortic adenopathy in the abdomen. This has progressed substantially relative to the previous exam. Hepatic cysts are noted. There is some adenopathy in the pelvis as well. On the PET the FDG is physiologically distributed in the visualized brain. No abnormal activity is seen in the neck. The slightly enlarged lymph node at the right thoracic inlet is moderately FDG avid but similar to the previous exam. No significant FDG avid hilar or mediastinal adenopathy is seen. Markedly FDG avid focus is seen involving the fundus of the stomach similar to the previous exam. Maximum SUV is approximately 12. Enlarged periaortic lymph nodes with additional adenopathy in the area of the splenic hilum are markedly FDG avid. Maximum SUV of these nodes is approximately 12.5. The slightly enlarged lymph nodes in the pelvis are also FDG avid. IMPRESSION: Substantial progression of disease. There is now marked adenopathy in the abdomen and to a lesser extent in the pelvis, not present previously. These nodes are markedly FDG avid consistent with metastatic disease
== END | disposition home or self-care (01) ==
LOC: PETSC 07:54
PROVIDERS: ATTEND Internal Medicine Hematology & Oncology
DX: C80.1 Malignant (primary) neoplasm, unspecified (principal)
CPT/HCPCS: 78815; A9552